=== PATIENT | female | born 1980 | race Caucasian/White ===

== ENCOUNTER 2019-10-28 23:24 | Emergency (ER) | payer BC, MEDICAID ==
[~2019-10-28] VITALS: Ht 170.2 cm; Wt 88.0 kg
[2019-10-28 23:29] VITALS: BP 135/65
[2019-10-29 00:07] LABS: MICROSCOPIC AUTO
[2019-10-29 01:46] LABS: BASOPHILS # (AUTO) 0.03 x10^3/uL (0-0.1); BASOPHILS % (AUTO) 0 % (0-1); EOSINOPHILS # (AUTO) 0.09 x10^3/uL (0-0.4); EOSINOPHILS % (AUTO) 1 % (1-7); LYMPHOCYTES # (AUTO) 2.45 x10^3/uL (1-3.4); LYMPHOCYTES % (AUTO) 30 % (22-44); MD NO; MEAN CORPUSCULAR HEMOGLOBIN 33.5 pg (27.0-34.8); MEAN CORPUSCULAR HGB CONC 33.3 g/dL (32.4-35.8); MEAN CORPUSCULAR VOLUME 100.9 fL (80-100); MEAN PLATELET VOLUME 7.9 fL (7.4-10.4); MONOCYTES # (AUTO) 0.52 x10^3/uL (0.2-0.8); MONOCYTES % (AUTO) 6 % (2-9); NEUTROPHILS # (AUTO) 5.11 x10^3/uL (1.8-6.8); NEUTROPHILS % (AUTO) 62 % (42-75); PLATELET COUNT 284 x10^3/uL (130-400); RED BLOOD COUNT 4.59 x10^6/uL (3.82-5.3); RED CELL DISTRIBUTION WIDTH 13.2 % (9.6-15.2)
[2019-10-29 01:48] LABS: HCG UR SG 1.017 (1.003-1.030)
[2019-10-29 01:58] LABS: ALANINE AMINOTRANSFERASE 25 U/L (12-78); ANION GAP 7 mmol/L (5-15); CALCIUM 9.1 mg/dL (8.5-10.1); CHLORIDE 106 mmol/L (98-107); CREATININE 0.76 mg/dL (0.55-1.02)
[2019-10-29 02:00] LABS: ALKALINE PHOSPHATASE 103 U/L (45-117); BILIRUBIN,TOTAL 0.5 mg/dL (0.2-1.0)
[2019-10-29] MEDS ORDERED: ONDANSETRON ODT 4 MG ONE (03:12)
[2019-10-29] MEDS ORDERED: IBUPROFEN 600 MG TABLET ONE (03:12)
[2019-10-29] MEDS ORDERED: CEFDINIR 300 MG CAPSULE ONE (03:12)
--- NOTE | 2019-10-29 03:19 | NUR ---
PT TREATED AND DISCHARGED FROM [facility]
[2019-10-29] MEDS ORDERED: IBUPROFEN 600 MG TABLET PO ONE (03:30)
[2019-10-29] MEDS ORDERED: CEFDINIR 300 MG CAPSULE PO ONE (03:30)
[2019-10-29] MEDS ORDERED: ONDANSETRON ODT 4 MG PO ONE (03:30)
== END 2019-10-29 03:24 | disposition home or self-care (01) ==
LOC: ED 10-29
DX: N10 Acute pyelonephritis (principal); R10.31 Right lower quadrant pain; K57.90 Diverticulosis of intestine, part unspecified, without perforation or abscess without bleeding; R11.2 Nausea with vomiting, unspecified; F17.210 Nicotine dependence, cigarettes, uncomplicated
CPT/HCPCS: 36415; 74176; 80053; 81001; 81025; 83690; 85025; 87077; 87086; 87186; 99284; 99406; Q0162